=== PATIENT | female | born 1955 | race Caucasian/White ===

== ENCOUNTER 2018-10-10 07:17 | Observation (INO) ==
[2018-10-10] MEDS ORDERED: ceFAZolin 1 GM Premix Inj 1 GM/50 ML FROZ.PIGGY IV.SIG ONE (09:00)
[2018-10-10] MEDS ORDERED: ceFAZolin Inj 1,000 MG in Sodium Chlor 0.9% Inj 100 ML IV.SIG ONE (09:15)
[2018-10-10] MEDS ORDERED: Chlorhexidine Gluconate 2% 1 Pack (2 Cloths) TOPICAL ONE (09:15)
[2018-10-10] MEDS ORDERED: Sodium Chlor 0.9% Inj 500 ML IV.CONT ONE (09:15)
[2018-10-10] MEDS ORDERED: Metoprolol Tartrate 25 MG Tablet PO ONE (09:15)
[2018-10-10] MEDS ORDERED: Sugammadex Inj 200 MG/2 ML Vial IV.PUSH ONE (11:40)
[2018-10-10] MEDS ORDERED: Metoprolol Inj 5 MG/5 ML Vial IV.PUSH ONE (12:36)
[2018-10-10] MEDS ORDERED: Esmolol Bolus Inj 100 MG/10 ML Vial IV.PUSH ONE (12:36)
[2018-10-10] MEDS ORDERED: Lidocaine PF 1% Inj 5 ML Syringe INFILTRATN ONE (12:36)
[2018-10-10] MEDS ORDERED: Estrogens Congugated Vag Cream w/app 30 GM Tube VAGINAL ONE (14:57)
[2018-10-10] MEDS ORDERED: fentaNYL Citrate Inj 100 MCG/2 ML Ampul ONE (15:25)
[2018-10-10] MEDS ORDERED: HYDROmorphone PF Inj 2 MG/ML Vial ONE (15:48)
[2018-10-10] MEDS ORDERED: Ketorolac Inj 30 MG/ML (IVP) Vial ONE (15:55)
[2018-10-10] MEDS ORDERED: Ketorolac Inj 30 MG/ML (IVP) Vial IV.PUSH PRN (18:00)
[2018-10-11] MEDS ORDERED: Lisinopril 20 MG Tablet PO ONE (00:45)
[2018-10-11] MEDS ORDERED: Lisinopril 20 MG Tablet PO SCH ×2 (09:00→18:00)
[2018-10-11] MEDS ORDERED: Gabapentin 300 MG Capsule PO SCH (09:00)
--- NOTE | 2018-10-11 11:38 | P.PNOB ---
Assessment and Plan - Postoperative Procedures Operation Date: 10/10/18 09:15 Actual Procedures Side Surgeon p VAGINAL SACROCOLPOPEXY ANTERIOR AND POSTERIOR COLPORRHAPHY PERINEOPLASTY Not Applicable Dee Shipley MD - Time Spent With Patient Total time spent is greater than 50% in coordination of care (as documented) at patient's floor/unit and/or counseling patient: Subjective Subjective: pain is well controlled, patient is tolerating oral intake (Patient has chronic back pain and reports her pain current pain as typical. Specifically she voices no changes to sciatic baseline discomfort or pelvic or buttock pain on ambulation.) Physical Exam Vital signs: Temp Pulse Resp BP Pulse Ox 98.8 F 81 20 135/61 98 10/11/18 08:00 10/11/18 08:00 10/11/18 08:16 10/11/18 08:00 10/11/18 08:00 - Constitutional mild distress, obese - Routine Respiratory Exam Present: CTA bilaterally - Routine Abdominal Exam Present: soft - Routine Exam Patient deferred: perineal exam (sutures intact. Packing without new blood on removal.) External: Present: normal urethra appearance - Detailed Neurological Exam: Coma Scale Eye Opening: Spontaneous Verbal Response: Oriented Motor Response: Obey commands Chancellor Coma Scale Total: 15 - Routine Psychiatric Exam Present: normal affect, normal thought process, good insight, good judgment - Urinary Catheter Management Indwelling Urethral Catheter Cath placed during this visit: yes, but has since been removed by the nurse Insertion date: 10/10/18 Insertion time: 12:36 Removal date: 10/11/18 Removal time: 05:40
--- NOTE | 2018-10-11 12:03 | P.OP ---
Date of procedure: 10/10/18 Procedure: vaginal extraperitoneal sacrocolpopexy Anterior and posterior colporrhaphy Perineoplasty Anesthesia: GETA Surgeon: Dee Shipley MD Proposal Engineer: Ravinder Ocampo Cheryl Estimated blood loss (mL): 200 Pathology: none sent (vaginal mucosa removed discarded)
== END 2018-10-11 13:55 | disposition home or self-care (01) ==
LOC: PHSDC 07:17 → PH3 07:17
PROVIDERS: ADMIT Obstetrics & Gynecology; ATTEND Obstetrics & Gynecology